=== PATIENT | female | born 1995 | race Two or more races ===

== ENCOUNTER 2016-11-17 15:45 | Emergency (ER) | payer OTHER ==
[2016-11-17 15:53] VITALS: RESP 16; TEMP 98.8
[2016-11-17 16:12] VITALS: O2SAT 96
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
[2016-11-17 17:35] VITALS: BP 127/71; PULSE 79
== END 2016-11-17 17:35 | disposition home or self-care (01) ==
DX: S16.1XXA Strain of muscle, fascia and tendon at neck level, initial encounter (principal); S70.01XA Contusion of right hip, initial encounter; W22.8XXA Striking against or struck by other objects, initial encounter